=== PATIENT | female | born 1980 | race Caucasian/White ===

== ENCOUNTER 2017-02-07 10:04 | Emergency (ER) | payer OTHER | END 2017-02-07 11:15 | disposition left against medical advice (07) | LOC: UCEAST 10:04 | DX: S99.929A Unspecified injury of unspecified foot, initial encounter (principal); X58.XXXA Exposure to other specified factors, initial encounter; Y93.9 Activity, unspecified; Y92.9 Unspecified place or not applicable; Z53.21 Procedure and treatment not carried out due to patient leaving prior to being seen by health care provider ==

== ENCOUNTER 2018-01-31 09:32 | Emergency (ER) | payer MEDICAID, OTHER ==
[2018-01-31 09:48] VITALS: BP 148/85
--- NOTE | 2018-01-31 10:07 | UC ---
FLU HPI - HPI Summary HPI Summary: Pt presents with fever, sore throat, and fatigue for the last 2 days. She is most concerned about her sore throat. Yesterday fever was 102F. She has been taking ibuprofen with good relief of fever. Denies cough, SOB, chest pain, abdominal pain, n/v/d/c. - History of Current Complaint Chief Complaint: UCRespiratory Stated Complaint: SORE THROAT Time Seen by Provider: 01/31/18 10:07 Hx Obtained From: Patient Hx Last Menstrual Period: 01/05/18 Onset/Duration: Sudden Onset Severity Currently: Moderate Severity Initially: Moderate Pain Intensity: 6 Pain Scale Used: 0-10 Numeric Associated Signs & Symptoms: Positive: Fever, Sore Throat - Allergy/Home Medications Allergies/Adverse Reactions: Allergies Allergy/AdvReac Type Severity Reaction Status Date / Time Penicillins Allergy Hives Verified 01/31/18 09:51 Home Medications: Home Medications Acetaminophen [Tylophen] 500 mg PO Q6H PRN 01/31/18 [History Confirmed 01/31/18] Ibuprofen 200 mg PO Q6H PRN 01/31/18 [History Confirmed 01/31/18] PMH/Surg Hx/FS Hx/Imm Hx Previously Healthy: Yes GI/ History: Gastroesophageal Reflux Psychological History: Anxiety - Surgical History Surgical History: None - Social History Occupation: Employed Full-time Lives: With Family Alcohol Use: Occasionally Substance Use Type: None Smoking Status (MU): Light Every Day Tobacco Smoker Type: Cigarettes Amount Used/How Often: 1/2ppd Review of Systems Constitutional: Fever, Fatigue Skin: Negative Eyes: Negative ENT: Sore Throat Respiratory: Negative Cardiovascular: Negative Gastrointestinal: Negative Neurological: Negative Psychological: Negative All Other Systems Reviewed And Are Negative: Yes Physical Exam - Summary Physical Exam Summary: GENERAL: NAD. WDWN. No pain distress. SKIN: No rashes, sores, ulcers, masses, lesions. HEENT: Head: AT/NC Eyes: Conjunctiva clear without inflammation or discharge. Ears: Hearing grossly normal. TMs intact, no bulging, erythema, or edema. Nose: Nasal mucosa pink and moist. NTTP maxillary and frontal sinus. Throat: Posterior oropharynx mild erythema and 2+ tonsillar enlargement. No exudates. Uvula midline. No hoarse voice or muffled voice. NECK: Supple. Anterior LAD with mild TTP CHEST: CTAB. No r/r/w. No accessory muscle use. Breathing comfortably and in no distress. CV: RRR. Without m/r/g. Pulses intact. Brisk cap refill. NEURO: Alert. CN II-XII grossly intact. PSYCH: Age appropriate behavior. Triage Information Reviewed: Yes Vital Signs: Initial Vital Signs Temp 99.3 F 01/31/18 09:44 Pulse 104 01/31/18 09:44 Resp 16 01/31/18 09:44 BP 148/85 01/31/18 09:44 Pulse Ox 100 01/31/18 09:44 Flu Course/Dx - Course Course Of Treatment: POC strep positive. Azithromycin - Differential Dx/Diagnosis Provider Diagnoses: Strep pharyngitis Discharge - Discharge Plan Condition: Stable Disposition: HOME Prescriptions: Azithromycin TAB* [Zithromax TAB (Z-ZEESHAN) 250 mg #6 tabs] 2 tab PO .TODAY, THEN 1 DAILY #1 zeeshan Patient Education Materials: Strep Throat (DC) Referrals: Elba Gonzales [employer]PERVISOR [Primary Care Provider] - Additional Instructions: If you develop a fever, shortness of breath, chest pain, new or worsening symptoms - please call your PCP or go to the ED. Your blood pressure was high at todays visit. Please see your primary provider within 4 weeks for recheck and re-evaluation.
== END 2018-01-31 10:26 | disposition home or self-care (01) ==
LOC: UCEAST 09:32
DX: J02.0 Streptococcal pharyngitis (principal); F17.210 Nicotine dependence, cigarettes, uncomplicated; Z88.0 Allergy status to penicillin
CPT/HCPCS: 87651; 99212; G0463

== ENCOUNTER 2018-02-25 11:28 | Emergency (ER) | payer MEDICAID ==
--- NOTE | 2018-02-25 12:12 | UC ---
Skin Complaint HPI - HPI Summary HPI Summary: 37 yo WF no pmhx c/o severe itching on her upper back and shoulder region exacerbated by taking hot showers and wearing her hoodie. Denies wearing new jewelry, no new foods or new detergents and is causing anxiety. - History of Current Complaint Chief Complaint: UCGeneralIllness Time Seen by Provider: 02/25/18 11:35 Stated Complaint: PANIC ATTACK BURNING/ITCHY FEELING Hx Obtained From: Patient Hx Last Menstrual Period: february 02 Onset Severity: Severe Current Severity: Moderate Pain Intensity: 0 - Allergy/Home Medications Allergies/Adverse Reactions: Allergies Allergy/AdvReac Type Severity Reaction Status Date / Time Penicillins Allergy Hives Verified 02/25/18 11:35 Review of Systems Constitutional: Negative Skin: Other - EXTREME SKIN ITCHINESS WITH BURNING Eyes: Negative ENT: Negative Respiratory: Negative Cardiovascular: Negative Gastrointestinal: Negative Genitourinary: Negative Motor: Negative Neurovascular: Negative Musculoskeletal: Negative Neurological: Negative Psychological: Negative All Other Systems Reviewed And Are Negative: Yes PMH/Surg Hx/FS Hx/Imm Hx Previously Healthy: Yes Psychological History: Anxiety - Surgical History Surgical History: None - Social History Alcohol Use: Occasionally Substance Use Type: None Smoking Status (MU): Light Every Day Tobacco Smoker Type: Cigarettes Amount Used/How Often: 1/2ppd Physical Exam Triage Information Reviewed: Yes Vital Signs: Initial Vital Signs Temp 36.7 C 02/25/18 11:38 Pulse 121 02/25/18 11:38 Resp 19 02/25/18 11:38 BP 145/121 02/25/18 11:38 Pulse Ox 100 02/25/18 11:38 Eye Exam: Normal ENT Exam: Normal Dental Exam: Normal Neck exam: Normal Neck: Positive: 1 Respiratory Exam: Normal Cardiovascular Exam: Normal Abdominal Exam: Normal Musculoskeletal Exam: Normal Neurological Exam: Normal Psychological Exam: Normal Skin: Positive: Other - moderate ichythyosis on shoulders upper back and trunk, no skin breaks Course/Dx - Course Course Of Treatment: protect skin with baby oil and take LESS frequent showers and only LUKEWARM water - Diagnoses Provider Diagnoses: Ichthyosis. Dry skin eczema. ELEVATED BP in anxious pt Discharge - Sign-Out/Discharge Documenting (check all that apply): Discharge - Discharge Plan Condition: Stable Disposition: HOME Patient Education Materials: Eczema (ED) Referrals: Elba Gonzales NP [Primary Care Provider] - Additional Instructions: STOP TAKING HOT SHOWERS DAILY-USE LUKEWARM WATER APPLY BABY OIL AND/OR COCONUT OIL IN SHOWER RIGHT BEFOR GETTING OUT OF SHOWER AND PAT DRY AND LEAVE OIL ON SKIN USE WOOLITE OR DETERGENT FORMULATED FOR BABIES IF CONDITION WORSENS SEE BEST SEC[facility] JOBS - Billing Disposition and Condition Condition: STABLE Disposition: HOME
[2018-02-25 12:14] VITALS: BP 138/76
== END 2018-02-25 12:14 | disposition home or self-care (01) ==
LOC: UCEAST 11:28
DX: Q80.9 Congenital ichthyosis, unspecified (principal); L85.3 Xerosis cutis; R03.0 Elevated blood-pressure reading, without diagnosis of hypertension; F41.9 Anxiety disorder, unspecified; Z88.0 Allergy status to penicillin; F17.210 Nicotine dependence, cigarettes, uncomplicated
CPT/HCPCS: 99211; G0463

== ENCOUNTER 2019-09-27 20:33 | Emergency (ER) | payer OTHER ==
--- OUTSIDE RECORDS SUMMARY | 2019-09-27 21:06 | XMS REPORT | Continuity of Care Document ---
:1980 External Reference #:[id number] Author Name Elba Gonzales N.P. 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 Onset: 10/20/2012 Generalized anxiety disorder Silver Fisher M.D. Onset: 01/20/2013 Social History Type Date Description Comments Sex Unknown Tobacco Use Start: Unknown Current Cigarette Smoker max 1 ppd; began age 5-10 Cigarettes Daily 13 ETOH Use Currently consumes 2 - 5 beers per week alcohol Recreational Drug Use Never Used Drugs Tobacco Use Start: Unknown Patient is a current trying to quit smoker, smokes every day Smoking Status Reviewed: 08/30/19 Patient is a current trying to quit smoker, smokes every day Allergies, Adverse Reactions, Alerts Active Allergies Reaction Severity Comments Date Penicillin 12/17/2010 Medications Active Medications SIG Qnty Indications Ordering Date Provider Fluticasone 2 sprays each nostril 16units J01.90 Elba Gonzales, 04/13/2019 Propionate daily as needed N.P. 50mcg/Act Suspension Metrogel-Vaginal apply intravaginally 70gm Isabelle Maryann, 01/28/2019 once a day x 7 days M.D. 0.75% Gel Ventolin HFA 1 to 2 inhalations 18units J20.9 Elba Gonzales, 01/01/2019 every 4 hours as N.P. 108(90Base) needed mcg/Act Aerosol Xanax 1/2 to 1 tab once per 15tabs Elba Gonzales, 12/03/2012 0.25mg day for anxiety N.P. Tablets Omeprazole take 1 capsule by 30caps K21.9 Elba Gonzales, 10/20/2012 20mg mouth once daily N.P. Capsules DR Christopher Medications Azithromycin two tabs day 6tabs J01.90 Elba Gonzales, 04/13/2019 - 250mg one, one daily N.P. 04/23/2019 Tablets till gone Medications Administered in Office Medication SIG Qnty Indications Ordering Provider Date PPD Nurse Visit A 07/28/2019 Injection PPD Elba Gonzales, N.P. 01/12/2018 Injection Immunizations CPT Code Status Date Vaccine Lot # [id number] Given 11/21/2015 Influenza Virus Vaccine, Quadrivalent, Split, [id number] Preservative Free [id number] Given 05/16/2014 Tdap - Tetanus/Diptheria/Acellular Pertussis [id number] Given 01/13/2013 Measles Mumps And Rubella MMR [id number] Given 12/03/2012 Measles Mumps And Rubella MMR [id number] Given 12/03/2012 Influenza Virus 3Yrs & Over [id number] Given 08/20/2011 Influenza Virus 3Yrs & Over [id number] Given 09/01/2010 Influenza Virus 3Yrs & Over Vital Signs Date Vital Result Comment 08/30/2019 10:57am Height 65.75 inches 5'5.75" Weight 188.00 lb Heart Rate 72 /min BP Systolic 131 mmHg BP Diastolic 81 mmHg Body Temperature 98.4 F O2 % BldC Oximetry 99 % BMI (Body Mass Index) 30.6 kg/m2 04/13/2019 3:37pm Height 65.75 inches 5'5.75" Weight 181.00 lb Heart Rate 82 /min BP Systolic 131 mmHg BP Diastolic 83 mmHg Body Temperature 98.7 F O2 % BldC Oximetry 99 % BMI (Body Mass Index) 29.4 kg/m2 Results Description No Information Available Procedures Description No Information Available Medical Devices Description No Information Available Encounters Type Date Location Provider Dx Diagnosis Office Visit 04/13/2019 [facility] Elba Gonzales, J01.90 Acute sinusitis , 3:20p Medicine - Ccmob N.P. unspecified H66.92 Otitis media, unspecified, left ear Assessments Date Code Description Provider 08/30/2019 Z00.00 Encounter for general adult medical examination Elba Gonzales NTerrance without abnormal findings 08/30/2019 Z12.31 Encounter for screening mammogram for malignant Elba Gonzales N.P. neoplasm of breast 07/30/2019 Z11.1 Encounter for screening for respiratory Nurse Visit A tuberculosis 07/28/2019 Z11.1 Encounter for screening for respiratory Nurse Visit A tuberculosis 04/13/2019 J01.90 Acute sinusitis, unspecified Elba Gonzales N.Marla 04/13/2019 H66.92 Otitis media, unspecified, left ear Elba Gonzales N.P. Plan of Treatment Future Appointment(s):10/12/2019 8:40 am - Elba Gonzales N.P. at [facility] - [facility]08/30/2019 - Elba Gonzales N.P.Z00.00 Encounter for general adult medical examination without abnormal findingsComments:For your routine health maintenance: I would encourage you to start a regular exercise program. You need to be getting between 1,000 - 1,200 mg of Calcium in daily. The best way to supplement what you get in your diet is to drink Calcium fortified orange juice. If you take a Calcium supplement be sureit has Vitamin D in it to help absorption. Your Tetanus immunization is up to date. You received this in 2013. It is good for 10 years unless you have a major injury, then it is good for 5 years.Z12.31 Encounter for screening mammogram for malignant neoplasm of breastComments:I have ordered your routine screening mammogram. The imaging department will give you your results at the time of your visit. I encourage you to do self exams. If you should notice any masses or thickening, please give the office a call. Functional Status Description No Information Available Mental Status Description No Information Available Referrals Description No Information Available
[2019-09-27] MEDS ORDERED: oxyCODONE TAB* 5 MG TAB PO ONE (21:44)
[2019-09-27] MEDS ORDERED: Clindamycin CAP* 150 MG PO ONE (21:44)
[2019-09-27] MEDS ORDERED: Lidocaine 2% VISCOUS* 15 ML UDC PO ONE (21:44)
--- NOTE | 2019-09-27 21:48 | ED ---
Throat Pain/Nasal Congestion - HPI Summary HPI Summary: Patient complains of left upper dental pain 3 days. Denies trauma, fever, cough, sore throat, CP, SOB, N/SD, abdominal pain, change in urine, change in BM. History of dental caries. States she has been applying ice and ibuprofen, concerned for infection. - History of Current Complaint Chief Complaint: EDDentalPain Time Seen by Provider: 09/27/19 21:17 Hx Obtained From: Patient Onset/Duration: Gradual Onset, Lasting Days Severity: Moderate Associated Signs And Symptoms: Positive: Negative Cough: None - Allergies/Home Medications Allergies/Adverse Reactions: Allergies Allergy/AdvReac Type Severity Reaction Status Date / Time Penicillins Allergy Hives Verified 09/27/19 20:39 PMH/Surg Hx/FS Hx/Imm Hx Endocrine/Hematology History: Denies: Hx Diabetes, Hx Thyroid Disease Cardiovascular History: Denies: Hx Hypertension Respiratory History: Reports: Other Respiratory Problems/Disorders - SMOKER Denies: Hx Asthma, Hx Chronic Obstructive Pulmonary Disease (COPD) GI History: Reports: Hx Gastroesophageal Reflux Disease - PRN MEDICATION, Other GI Disorders - RUQ pain Denies: Hx Ulcer History: Reports: Hx Renal Disease - hx hematoma on kidney last checked with ct 6 months ago per pt, Other Problems/Disorders - hx hematoma on kidney Sensory History: Reports: Hx Contacts or Glasses Denies: Hx Hearing Aid Opthamlomology History: Reports: Hx Contacts or Glasses Neurological History: Denies: Hx Dementia Psychiatric History: Reports: Hx Anxiety - NO MEDS - Immunization History Date of Tetanus Vaccine: up to date per pt Infectious Disease History: No Infectious Disease History: Denies: Hx Hepatitis, Hx Human Immunodeficiency Virus (HIV), Traveled Outside the [place] in Last 30 Days - Family History Known Family History: Positive: Non-Contributory - Social History Alcohol Use: Occasionally Substance Use Type: Reports: None Hx Tobacco Use: No Smoking Status (MU): Light Every Day Tobacco Smoker Type: Cigarettes Amount Used/How Often: 1/2ppd Review of Systems Constitutional: Negative Eyes: Negative Positive: Dental Pain Cardiovascular: Negative Respiratory: Negative Gastrointestinal: Negative Genitourinary: Negative Musculoskeletal: Negative Skin: Negative Neurological: Negative Positive: Anxious All Other Systems Reviewed And Are Negative: Yes Physical Exam - Summary Physical Exam Summary: No swelling, lesions, apical abscess noted intraorally. Positive for dental caries. Mild facial swelling to left side face Triage Information Reviewed: Yes Vital Signs On Initial Exam: Initial Vitals Temp Pulse Resp BP Pulse Ox 99 F 90 16 164/104 98 09/27/19 20:35 09/27/19 20:35 09/27/19 20:35 09/27/19 20:35 09/27/19 20:35 Vital Signs Reviewed: Yes Appearance: Positive: Well-Appearing Skin: Positive: Warm Head/Face: Positive: Normal Head/Face Inspection Eyes: Positive: Normal ENT: Positive: Normal ENT inspection Dental: Positive: Gross Decay/Caries @. Negative: Abscess @ Neck: Positive: Supple Respiratory/Lung Sounds: Positive: Clear to Auscultation Cardiovascular: Positive: Normal Abdomen Description: Positive: Nontender Musculoskeletal: Positive: Normal Neurological: Positive: Normal Psychiatric: Positive: Normal AVPU Assessment: Alert - [place] Coma Scale Best Eye Response: 4 - Spontaneous Best Motor Response: 6 - Obeys Commands Best Verbal Response: 5 - Oriented Coma Scale Total: 15 Procedures - Sedation Patient Received Moderate/Deep Sedation with Procedure: No Diagnostics - Vital Signs Vital Signs Temp Pulse Resp BP Pulse Ox 09/27/19 20:35 99 F 90 16 164/104 98 - Laboratory Lab Statement: Any lab studies that have been ordered have been reviewed, and results considered in the medical decision making process. EENT Course/Dx - Course Course Of Treatment: Patient complains of left upper dental pain 3 days. Denies trauma, fever, cough, sore throat, CP, SOB, N/SD, abdominal pain, change in urine, change in BM. History of dental caries. States she has been applying ice and ibuprofen, concerned for infection. Vital signs within normal limits. Rx for lidocaine, clindamycin and oxycodone. - Diagnoses Provider Diagnoses: Pain, dental, Dental abscess Discharge ED - Sign-Out/Discharge Documenting (check all that apply): Patient Departure - Discharge Plan Condition: Stable Disposition: HOME Prescriptions: Clindamycin HCl 450 mg PO TID 7 Days #63 capsule Lidocaine 2% VISCOUS* [Xylocaine 2% Viscous*] 15 ml SWISH SPIT Q6H PRN #1 btl PRN Reason: Pain - Severe Oxycodone HCl 5 mg PO TID 2 Days #6 tablet MDD 3 tabs Patient Education Materials: Dental Abscess (ED), Toothache (ED) Referrals: Oralia Muhammad MD [Primary Care Provider] - Additional Instructions: Take antibiotics as directed. Alternate ibuprofen 600 mg with Tylenol 650 mg every 3 hours as needed for pain. Take oxycodone as directed if needed for pain. Follow-up with your dentist as soon as possible. - Billing Disposition and Condition Condition: STABLE Disposition: Home
[2019-09-27 22:01] VITALS: BP 149/87
== END 2019-09-27 22:00 | disposition home or self-care (01) ==
LOC: ED 20:33
DX: K04.7 Periapical abscess without sinus (principal); K08.89 Other specified disorders of teeth and supporting structures; F17.210 Nicotine dependence, cigarettes, uncomplicated; F41.9 Anxiety disorder, unspecified; K21.9 Gastro-esophageal reflux disease without esophagitis; Z87.448 Personal history of other diseases of urinary system
CPT/HCPCS: 99282; A9270-GY